=== PATIENT | female | born 1945 | race Caucasian/White ===

== ENCOUNTER 2016-11-24 02:40 | Emergency (ER) | payer BC, OTHER ==
[~2016-11-24] VITALS: Ht 152.4 cm; Wt 62.0 kg
[2016-11-24 04:44] LABS: EOSINOPHIL (%) 2.1 % (0-5); EOSINOPHIL COUNT 0.1 K/uL (0-0.3); HEMATOCRIT 40.7 % (36.0-46.0); IMMATURE GRANULOCYTE (%) 0.6 % (0.0-0.7); INSTRUMENT ABS NEUTROPHIL CT 2.7 K/uL; LYMPHOCYTE COUNT 1.3 K/uL (1.0-2.8); MCH 30.8 PG (29.0-34.0); MCHC 33.7 G/DL (30.0-36.0); MCV 91.5 FL (83-99); MEAN PLAT.VOLUME 9.2 uM^3 (9.5-12.4); MONOCYTE (%) 13.6 % (3-12); MONOCYTE COUNT 0.7 K/uL (0-0.8); NEUTROPHIL (%) 55.6 % (45-76); NEUTROPHIL COUNT 2.7 K/uL (1.8-6.4); RBC DIS.WIDTH-CV 12.3 % (11.8-14.6); RBC DIS.WIDTH-SD 41.3 % (39-53); RED BLOOD COUNT 4.45 M/uL (3.80-5.20); WHITE BLOOD COUNT 4.8 K/uL (4.1-10.2)
[2016-11-24 04:50] LABS: PLATELET COUNT 170 K/uL (156-360)
[2016-11-24 04:54] LABS: CHLORIDE 103 mEq/L (99-109); POTASSIUM 4.1 mEq/L (3.7-5.4); SODIUM 135 mEq/L (136-147)
[2016-11-24 04:56] LABS: GLUCOSE 91 mg/dL (70-99)
[2016-11-24 04:57] LABS: ANION GAP 9 MEQ/L (2-14)
[2016-11-24 05:00] LABS: GFR ESTIMATE (CALCULATED) > 59 mL/min/; UREA NITROGEN (BUN) 19 mg/dL (9-23)
[2016-11-24] MEDS ORDERED: ACYCLOVIR800 MG PO (06:48)
[2016-11-24 07:10] VITALS: BP 128/76
== END 2016-11-24 07:12 | disposition home or self-care (01) ==
LOC: EME 02:40
PROVIDERS: Emergency Medicine
DX: B02.9 Zoster without complications (principal)
CPT/HCPCS: 80048; 85025; 99281; 99284; J1100; J3010; J7030

== ENCOUNTER 2017-08-31 22:23 | Emergency (ER) | payer OTHER, BC ==
[~2017-08-31] VITALS: Ht 152.4 cm; Wt 63.6 kg
[~2017-08-31 22:23] MED LIST: ACYCLOVIR800 MG PO
[2017-09-01 00:47] VITALS: BP 122/76
== END 2017-09-01 00:52 | disposition home or self-care (01) ==
LOC: EME → EDBD 22:23 → EME 22:23
DX: S83.91XA Sprain of unspecified site of right knee, initial encounter (principal); Y04.8XXA Assault by other bodily force, initial encounter; X50.1XXA Overexertion from prolonged static or awkward postures, initial encounter; W18.39XA Other fall on same level, initial encounter; Y07.03 Male partner, perpetrator of maltreatment and neglect
CPT/HCPCS: 73564; 99281; 99284